=== PATIENT | male | born 1955 ===

== ENCOUNTER 2023-08-15 22:24 | Outpatient (REF) | payer BC, SELFPAY ==
[2023-08-15 20:48] LABS: Abs Immature Grans 0.01 10^3/uL (0.0-0.06); Absolute Basophil Count 0.06 10^3/uL (0.0-0.2); Absolute Eosinophil Count 0.15 10^3/uL (0.0-0.7); Absolute Lymphocyte Count 1.55 10^3/uL (1.2-3.4); Absolute Monocyte Count 0.36 10^3/uL (0.1-0.8); Absolute Neutrophil Count 2.46 10^3/uL (1.2-6.7); Basophils % 1.3; Eosinophils % 3.3; HCT 39.3 % (40.0-50.0); Immature Grans % 0.2; Lymphocytes % 33.8; MCH 30.4 pg (27.0-33.0); MCHC 33.1 % (32.0-36.0); MCV 92 fL (80-95); Monocytes % 7.8; Neutrophils % 53.6; RBC 4.28 10^6/uL (4.36-5.78); RDW 14.1 % (11.8-14.1); WBC 4.59 10^3/uL (4.4-10.8)
[2023-08-15 21:02] LABS: Diff Comment PLT Morph Reviewed; RBC Morphology Normal
[2023-08-15 21:40] LABS: TSH 6.77 uIU/Ml (0.36-3.74)
[2023-08-16 17:30] LABS: PSA, Screening 0.3 ng/mL (<=4.5)
== END 2023-08-15 22:25 | disposition home or self-care (01) ==
LOC: NCHCN 22:24
PROVIDERS: Referring Provider Family Medicine; Visit Provider Family Medicine
DX: D69.6 Thrombocytopenia, unspecified (principal); Z12.5 Encounter for screening for malignant neoplasm of prostate; R53.83 Other fatigue
CPT/HCPCS: 84153; 84443; 85025